=== PATIENT | female | born 1965 | race Caucasian/White ===

== ENCOUNTER → 2023-06-10 06:50 | Outpatient (REF) | payer OTHER, SELFPAY | LOC: RAD 06:50 | PROVIDERS: ATTENDING PHYSICIAN Specialist; FAMILY PHYSICIAN Nurse Practitioner Adult Health | DX: N20.0 Calculus of kidney (principal) | CPT/HCPCS: 74176 ==

== ENCOUNTER → 2023-10-02 06:49 | Outpatient (REF) | payer OTHER, SELFPAY | LOC: RAD 06:49 | PROVIDERS: ATTENDING PHYSICIAN Otolaryngology; FAMILY PHYSICIAN Nurse Practitioner Adult Health | DX: J32.9 Chronic sinusitis, unspecified (principal) | CPT/HCPCS: 70486 ==

== ENCOUNTER → 2024-01-18 13:12 | Outpatient (REF) | payer OTHER, SELFPAY | LOC: RAD 13:12 | PROVIDERS: ATTENDING PHYSICIAN Specialist; FAMILY PHYSICIAN Nurse Practitioner Adult Health | DX: R35.0 Frequency of micturition (principal); N20.0 Calculus of kidney | CPT/HCPCS: 74018 ==

== ENCOUNTER → 2024-05-27 09:34 | Outpatient (REF) | payer OTHER, SELFPAY | LOC: HWRAD 09:34 | PROVIDERS: ATTENDING PHYSICIAN Allergy & Immunology; FAMILY PHYSICIAN Nurse Practitioner Adult Health | DX: R06.02 Shortness of breath (principal) | CPT/HCPCS: 71046 ==

== ENCOUNTER → 2024-07-20 11:55 | Outpatient (REF) | payer OTHER, SELFPAY | LOC: HWRAD 11:55 | PROVIDERS: ATTENDING PHYSICIAN Specialist; FAMILY PHYSICIAN Nurse Practitioner Adult Health | DX: N20.0 Calculus of kidney (principal) | CPT/HCPCS: 74018 ==